=== PATIENT | male | born 1935 | race American Indian/Alaskan Native ===

== ENCOUNTER 2018-12-14 14:11 | Emergency (ER) | payer MEDICARE ==
[2018-12-14 14:23] VITALS: BP 198/94
[2018-12-14 16:33] LABS: Basophils # (Auto) 0.1 K/mm3 (0.0-0.1); Basophils % (Auto) 1.3 % (0.0-1.8); Eosinophils # (Auto) 0.1 K/mm3 (0.0-0.4); Eosinophils % (Auto) 2.4 % (0.0-4.3); Hematocrit 40.3 % (35.5-45.6); Hemoglobin 13.6 gm/dl (11.8-15.2); Lymphocytes # (Auto) 2.9 K/mm3 (1.2-5.4); Lymphocytes % (Auto) 48.3 % (13.4-35.0); Mean Corpuscular HGB Conc 34 % (32-34); Mean Corpuscular Volume 87 fl (84-94); Monocytes # (Auto) 0.7 K/mm3 (0.0-0.8); Monocytes % (Auto) 11.8 % (0.0-7.3); Platelet Count 198 K/mm3 (140-440); Red Blood Count 4.64 M/mm3 (3.65-5.03)
--- NOTE | 2018-12-14 16:44 | XRay Report ---
LEFT SHOULDER 3 VIEWS INDICATION / CLINICAL INFORMATION: MAIN: shoulder pain. COMPARISON: None available. FINDINGS: Mild degenerative change in the AC joint. No other significant skeletal abnormality. Signer Name: Abhijit MORENO Signed: 12/14/2018 4:39 PM Workstation Name: [id number]
[2018-12-14 16:54] LABS: BUN/Creatinine Ratio 16; Blood Urea Nitrogen 18 mg/dL (9-20); Calcium 9.7 mg/dL (8.4-10.2); Hemolysis Index 9
--- NOTE | 2018-12-14 17:17 | Emergency Department Report ---
ED Extremity Problem HPI - General Chief complaint: Extremity Problem,Nontraumatic Stated complaint: PAIN IN LEFT ARM Time Seen by Provider: 12/14/18 15:43 Source: patient, family Mode of arrival: Ambulatory Limitations: No Limitations - History of Present Illness Initial comments: 83-year-old male, history of hypertension and diabetes, presents to ED with left shoulder pain 1 week. Patient states pain begins on the left shoulder and radiates down his left arm. Patient denies any numbness or tingling in the arm. Patient denies any chest pain, shortness of breath, nausea or vomiting, diaphoresis. Patient denies any trauma to the shoulder. States he may have hurt it by lifting a lawnmower. Patient states pain is worse with movement of the arm, relief of pain with resting arm. Patient denies any exertional chest or arm pain. He reports relief of pain with Tylenol. Denies tobacco use. MD Complaint: extremity pain -: week(s) (1) Location: left, other (shoulder) History of Same: No -: Yes arthralgia Radiation: distal Quality: aching Consistency: intermittent Improves with: immobilization Worsens with: palpation, other (movement of the left shoulder) Associated Symptoms: denies: chest pain, shortness of breath - Related Data Previous Rx's Medication Instructions Recorded Last Taken Type Naproxen [Naprosyn] 500 mg PO BID #20 tablet 12/14/18 Unknown Rx Allergies Allergy/AdvReac Type Severity Reaction Status Date / Time No Known Allergies Allergy Unverified 12/14/18 14:21 ED Review of Systems ROS: Stated complaint: PAIN IN LEFT ARM Other details as noted in HPI Comment: All other systems reviewed and negative Respiratory: denies: shortness of breath Cardiovascular: denies: chest pain Gastrointestinal: denies: nausea, vomiting Musculoskeletal: as per HPI Neurological: denies: weakness, numbness, paresthesias ED Past Medical Hx - Past Medical History Previous Medical History?: Yes Hx Hypertension: Yes Hx Diabetes: Yes - Surgical History Past Surgical History?: Yes Hx Appendectomy: Yes - Social History Smoking Status: Never Smoker Substance Use Type: None - Medications Home Medications: Home Medications Medication Instructions Recorded Confirmed Last Taken Type Naproxen [Naprosyn] 500 mg PO BID #20 tablet 12/14/18 Unknown Rx ED Physical Exam - General Limitations: No Limitations General appearance: alert, in no apparent distress - Head Head exam: Present: atraumatic, normocephalic - Eye Eye exam: Present: normal appearance, PERRL, EOMI - ENT ENT exam: Present: mucous membranes moist - Neck Neck exam: Present: normal inspection - Respiratory Respiratory exam: Present: normal lung sounds bilaterally. Absent: respiratory distress - Cardiovascular Cardiovascular Exam: Present: regular rate, normal rhythm - GI/Abdominal GI/Abdominal exam: Present: soft. Absent: distended, tenderness - Extremities Exam Extremities exam: Present: other (mild tenderness to the left anterior shoulder, slight pain w/ abduction of left arm; no swelling or deformities noted; sensation intact, strength 5/5) - Neurological Exam Neurological exam: Present: alert, oriented X3 - Psychiatric Psychiatric exam: Present: normal affect, normal mood - Skin Skin exam: Present: warm, dry, intact, normal color ED Course Vital Signs 12/14/18 14:21 Temperature 97.5 F L Pulse Rate 75 Respiratory 18 Rate Blood Pressure 198/94 O2 Sat by Pulse 99 Oximetry ED Medical Decision Making - Lab Data Result diagrams: 12/14/18 16:13 12/14/18 16:13 - EKG Data -: EKG Interpreted by Dc EKG shows normal: sinus rhythm, axis, QRS complexes, ST-T waves Rate: normal - EKG Data Interpretation: no acute changes, other (prolonged ME) - Radiology Data Radiology results: report reviewed, image reviewed Critical care attestation.: If time is entered above; I have spent that time in minutes in the direct care of this critically ill patient, excluding procedure time. ED Disposition Clinical Impression: Left shoulder strain Disposition: DC-01 TO HOME OR SELFCARE Is pt being admited?: No Condition: Stable Instructions: Shoulder Sprain (ED), Arthralgia (ED) Referrals: SUZANNE EPPS PA [Primary Care Provider] - 3-5 Days ALEXANDRA HOOK MD [Staff Physician] - 3-5 Days Time of Disposition: 17:18
== END 2018-12-14 18:00 | disposition home or self-care (01) ==
LOC: ED 14:11
DX: S46.912A Strain of unspecified muscle, fascia and tendon at shoulder and upper arm level, left arm, initial encounter (principal); X50.9XXA Other and unspecified overexertion or strenuous movements or postures, initial encounter; Y93.89 Activity, other specified; Y92.89 Other specified places as the place of occurrence of the external cause; Y99.8 Other external cause status
CPT/HCPCS: 36415; 80048; 84484; 85025; 93005; 93010